=== PATIENT | female | born 1990 | race Caucasian/White ===

== ENCOUNTER 2016-07-08 10:43 | Emergency (ER) | payer BC | END 2016-07-08 11:54 | disposition home or self-care (01) | LOC: CFTX 10:43 → CED 10:43 → CFTX 11:38 | DX: J02.9 Acute pharyngitis, unspecified (principal); J30.2 Other seasonal allergic rhinitis; F17.210 Nicotine dependence, cigarettes, uncomplicated | CPT/HCPCS: 87651; 99283 ==